=== PATIENT | female | born 1985 | race Two or more races ===

== ENCOUNTER 2017-07-04 07:29 | Emergency (ER) | payer MEDICAID ==
[~2017-07-04] VITALS: Ht 167.6 cm; Wt 97.5 kg
[2017-07-04 08:29] LABS: Basophils # (auto) 0.1 uL; Basophils % (auto) 1.4 % (0.0-2.0); CONDITION Y; DEFINITIVE SEE PRINTOUT; Eosinophils # (auto) 0.5 uL; Hematocrit 28.4 % (36.0-46.0); Hemoglobin 8.8 g/dL (12.2-16.2); Lymphocytes # (auto) 1.9 uL; Lymphocytes % (auto) 27.4 % (10.0-50.0); Mean Corpuscular Hemoglobin 18.5 pg (28.0-32.0); Mean Corpuscular Hgb Conc. 30.9 g/dL (32.0-36.0); Mean Corpuscular Volume 59.9 fL (80.0-100.0); Mean Platelet Volume 8.9 fL (6.9-10.8); Monocytes # (auto) 0.6 uL; Monocytes % (auto) 8.6 % (0.0-12.0); Neutrophils # (auto) 3.9 uL; Neutrophils % (auto) 55.6 % (37.0-80.0); Platelet Count (auto) 410 10^3/uL (140-450); Red Cell Distribution Width 17.2 % (11.8-14.3)
[2017-07-04 08:44] LABS: Albumin 3.5 g/dL (3.4-5.0); BUN/Creatinine Ratio 15.7; Calcium 8.8 mg/dL (8.5-10.1); Potassium 3.4 mmol/L (3.5-5.1)
[2017-07-04 08:47] LABS: Bilirubin, Total 0.4 mg/dL (0.2-1.0); Total Protein 7.3 g/dL (6.4-8.2)
[2017-07-04 11:19] LABS: Urine Bilirubin Negative (Negative); Urine Blood 2+ /uL (Negative); Urine Glucose Normal (Normal); Urine Ketone Negative (Negative); Urine Mucus FEW (None Seen); Urine Nitrite Negative (Negative); Urine RBC 1 /hpf (0 - 4); Urine Squamous Epithelial Cell FEW /hpf (<5); Urine Urobilinogen Normal (Negative)
[2017-07-04 11:20] LABS: Urine Color Straw (Yellow)
[2017-07-04 11:51] VITALS: BP 132/80
== END 2017-07-04 12:04 | disposition home or self-care (01) ==
LOC: ER 07:29
DX: O46.91 Antepartum hemorrhage, unspecified, first trimester (principal); Z3A.00 Weeks of gestation of pregnancy not specified
CPT/HCPCS: 36415; 76801; 76817; 80053; 81001; 84702; 85025

== ENCOUNTER 2017-09-30 09:35 | Emergency (ER) | payer MEDICAID ==
[~2017-09-30] VITALS: Ht 162.6 cm; Wt 104.3 kg
[2017-09-30 10:43] LABS: Basophils # (auto) 0.1 uL; Hematocrit 33.2 % (36.0-46.0); Hemoglobin 10.1 g/dL (12.2-16.2); Mean Corpuscular Hemoglobin 18.5 pg (28.0-32.0); Mean Corpuscular Hgb Conc. 30.4 g/dL (32.0-36.0); Nucleated Red Blood Cells % 0.1 %; White Blood Cell 6.6 10^3/uL (4.4-10.8)
[2017-09-30 10:45] LABS: Basophils % (auto) 1.4 % (0.0-2.0); Eosinophils # (auto) 0.5 uL; Eosinophils % (auto) 6.9 % (0.0-7.0); Lymphocytes # (auto) 1.8 uL; Lymphocytes % (auto) 27.3 % (10.0-50.0); Mean Corpuscular Volume 60.9 fL (80.0-100.0); Mean Platelet Volume 8.5 fL (6.9-10.8); Monocytes # (auto) 0.6 uL; Monocytes % (auto) 9.7 % (0.0-12.0); Neutrophils # (auto) 3.6 uL; Neutrophils % (auto) 54.7 % (37.0-80.0); Platelet Count (auto) 398 10^3/uL (140-450); Red Cell Distribution Width 17.9 % (11.8-14.3)
[2017-09-30 10:49] LABS: Urine Bilirubin Negative (Negative); Urine Blood Negative /uL (Negative); Urine Color Yellow (Yellow); Urine Glucose Normal (Normal); Urine Ketone Negative (Negative); Urine Mucus FEW (None Seen); Urine Nitrite Negative (Negative); Urine RBC 4 /hpf (0 - 4); Urine Squamous Epithelial Cell FEW /hpf (<5); Urine Urobilinogen Normal (Negative); Urine pH 5.5 (5.0-8.0)
[2017-09-30 11:02] LABS: BUN/Creatinine Ratio 19.6; Bilirubin, Total 0.5 mg/dL (0.2-1.0); Calcium 8.9 mg/dL (8.5-10.1); Potassium 3.3 mmol/L (3.5-5.1); Total Protein 8.7 g/dL (6.4-8.2)
[2017-09-30 11:07] LABS: Hypochromia Marked; Microcytosis Marked; Platelet Estimate Adequate
[2017-09-30 11:45] VITALS: BP 121/70
== END 2017-09-30 11:45 | disposition home or self-care (01) ==
LOC: ER 09:35
DX: O26.891 Other specified pregnancy related conditions, first trimester (principal); O21.9 Vomiting of pregnancy, unspecified; R10.32 Left lower quadrant pain; M54.5 Low back pain; Z3A.01 Less than 8 weeks gestation of pregnancy
CPT/HCPCS: 36415; 80053; 81001; 81025; 84702; 85025

== ENCOUNTER 2018-12-06 20:10 | Emergency (ER) | payer MEDICAID ==
[~2018-12-06] VITALS: Ht 162.6 cm; Wt 104.8 kg
[2018-12-06 20:38] VITALS: BP 91/72
[2018-12-06] MEDS ORDERED: ALBUTEROL SULF 2.5 MG/0.5ML(0.5%) NEB SOLN NEB ONE (20:45)
[2018-12-06] MEDS ORDERED: IPRATROPIUM BROM 0.5 MG/2.5ML INH SOL NEB ONE (20:45)
[2018-12-06] MEDS ORDERED: methylPREDNISolone SOD SUCC 125 MG/2 ML VL IM ONE (21:30)
[2018-12-06] MEDS ORDERED: cefTRIAXone SOD 1,000 MG VL IM ONE (21:30)
== END 2018-12-06 21:55 | disposition home or self-care (01) ==
LOC: ER 20:13
DX: J06.9 Acute upper respiratory infection, unspecified (principal)
CPT/HCPCS: 71045; 81002; 81025; 94640; 96372; 99283; J0696; J2930; J7611; J7644

== ENCOUNTER 2019-03-07 11:37 | Emergency (ER) | payer MEDICAID ==
[~2019-03-07] VITALS: Ht 162.6 cm; Wt 114.3 kg
[2019-03-07 12:37] VITALS: BP 132/80
[2019-03-07] MEDS: methylPREDNISolone SOD SUCC 125 MG/2 ML VL IM ONE (14:32)
== END 2019-03-07 14:59 | disposition home or self-care (01) ==
LOC: ER 11:46
DX: H66.92 Otitis media, unspecified, left ear (principal); R51 Headache; R07.89 Other chest pain
CPT/HCPCS: 71046; 81025; 96372; 99283; J2930